=== PATIENT | male | born 2000 | race Caucasian/White ===

== ENCOUNTER 2021-09-16 23:54 | Emergency (ER) | payer BC ==
[~2021-09-16] VITALS: Ht 193 cm; Wt 90.9 kg
[2021-09-17] MEDS ORDERED: ADDERALL 15 MG15 MG PO (00:39)
--- NOTE | 2021-09-17 20:27 | EKG ---
[facility] [address] [facility] [address] [place] [address] Signed Normal sinus rhythm Incomplete right bundle branch block Borderline ECG No previous ECGs available Confirmed by MALATHI NAM DO ([id number]) on 09/17/2021 8:26:54 PM Electronically Signed By: MALATHI NAM DO 09/17/212026 PATIENT NAME: SHASHI MCKEE NUVIA Electrocardiogram DATE OF : [birth year] PHYSICIAN: MALATHI NAM DO REPORT #: [id number] REPORT IS CONFIDENTIAL AND NOT TO BE RELEASED WITHOUT AUTHORIZATION
[2021-09-18] MEDS ORDERED: AMPHETAMINE SAL15 MG PO (18:05)
[2021-09-18] MEDS ORDERED: METHYLPHENIDATE20 MG PO (18:06)
[2021-09-18] MEDS ORDERED: AUGMENTIN 875-1 EACH PO (19:43)
== END 2021-09-17 03:34 | disposition home or self-care (01) ==
LOC: ED 23:54
DX: M54.2 Cervicalgia (principal); R06.00 Dyspnea, unspecified; R07.89 Other chest pain; R42 Dizziness and giddiness
CPT/HCPCS: 70496; 70498; 71046; 80048; 84484; 85025; 93005; 93010; 99285-25; A9270; Q9967

== ENCOUNTER 2021-09-18 17:39 | Emergency (ER) | payer BC ==
[~2021-09-18] VITALS: Ht 193 cm; Wt 90.9 kg
[~2021-09-18 17:39] MED LIST: ADDERALL 15 MG15 MG PO
--- OUTSIDE RECORDS SUMMARY | 2021-09-18 17:46 | XMS ---
PreManage Notification: SHASHI MCKEE Security Flight Reservations Manager Events No recent Security Events currently on file CRITERIA MET - [facility] - 2 Visits in 30 Days CARE PROVIDERS There are no care providers on record at this time. Jaquelin has no Care Guidelines for this patient. [place]12 MO.) [facility] NOTE: Visits indicate total known visits. [place] [place]ACKING (12 MO.) [facility] COMPLAINT: - BLURRY VISION 09/16/2021 23:[address] [facility] TYPE: Emergency COMPLAINT: - SWOLLEN NECK,VISUAL DISTRUBANCES INPATIENT VISIT TRACKING (12 MO.) No inpatient visits to display in this time frame [email or web address]
[2021-09-18] MEDS ORDERED: AMPHETAMINE SAL15 MG PO (18:05)
[2021-09-18] MEDS ORDERED: METHYLPHENIDATE20 MG PO (18:06)
[2021-09-18] MEDS ORDERED: AUGMENTIN 875-1 EACH PO (19:43)
== END 2021-09-18 19:53 | disposition home or self-care (01) ==
LOC: ED 17:39
DX: J32.9 Chronic sinusitis, unspecified (principal); Z79.899 Other long term (current) drug therapy
CPT/HCPCS: 99283